=== PATIENT | male | born 1965 ===

== ENCOUNTER 2021-03-02 23:12 | Emergency (ER) | payer SELFPAY ==
[2021-03-02] MEDS ORDERED: Lisinopril 10 MG Tab PO ONE (23:27)
--- NOTE | 2021-03-02 23:30 | EDM.PDOC ---
ED [facility] GENERAL MEDICAL PROBLEM - General Chief Complaint: General Stated Complaint: MEDICAL CLEARANCE Time Seen by Provider: 03/02/21 23:13 Source of Information: Reports: Patient - History of Present Illness INITIAL COMMENTS - FREE TEXT/NARRATIVE: Patient presents for medical clearance. Patient has a history of high blood pressure. Patient has no complaints at this time. No chest pain or shortness of breath or headache. No recent fevers chills cough vomiting diarrhea or other complaints. he does not know the name of the medication that he takes for his high blood pressure - Related Data Allergies Allergy/AdvReac Type Severity Reaction Status Date / Time No Known Allergies Allergy Verified 03/02/21 23:25 Home Meds: Home Meds . [Unable to Verify Home Med List] 03/02/21 [History] Social & Family History - Recreational Drug Use Recreational Drug Use: No ED ROS GENERAL - Review of Systems Review Of Systems: Comprehensive ROS is negative, except as noted in HPI. ED EXAM, GENERAL - Physical Exam Exam: See Below Free Text/Narrative:: CONSTITUTIONAL: well appearing in no acute distress SKIN: dry, and intact without rash HENT: Normocephalic, atraumatic, NECK: normal range of motion PULMONARY: normal chest rise and fall, no respiratory distress or stridor NEUROLOGIC: normal speech, moves all extremities, grossly non-focal MUSCULOSKELETAL: no gross deformities, atraumatic PSYCHIATRIC: normal mood and affect Course - Vital Signs Text/Narrative:: Patient presents for medical clearance. Patient's blood pressure is a little bit elevated but this would be expected as he is headed to longterm. It is not dangerously high and the patient is not symptomatic. I will give him a dose of lisinopril and then he can be medically cleared. He can restart his medications tomorrow either when he is released or can be started by [facility] (patient's own medication or medical staff) Last Recorded V/S: Last Vital Signs Temp 36.4 C 03/02/21 23:20 Pulse 88 03/02/21 23:20 Resp 14 03/02/21 23:20 BP 153/104 H 03/02/21 23:20 Pulse Ox 95 03/02/21 23:20 - Orders/Labs/Meds Orders: Active Orders 24 hr Category Date Time Status lisinopriL [Prinivil] Med 03/02/21 23:27 Once 10 mg PO ONETIME ONE Departure - Departure Time of Disposition: 23:29 Disposition: Home, Self-Care 01 Condition: Good Clinical Impression: Hypertension - Discharge Information Instructions: Hypertension, Adult, [id number] Referrals: PCP,None [Primary Care Provider] - Additional Instructions: Return for chest pain, headache, change or worsening condition. Take your blood pressure medication as normal starting tomorrow. The following information is given to patients seen in the emergency department who are being discharged to home. This information is to outline your options for follow-up care. We provide all patients seen in our emergency department with a follow-up referral. The need for follow-up, as well as the timing and circumstances, are variable depending upon the specifics of your emergency department visit. If you don't have a primary care physician on staff, we will provide you with a referral. We always advise you to contact your personal physician following an emergency department visit to inform them of the circumstance of the visit and for follow-up with them and/or the need for any referrals to a consulting specialist. The emergency department will also refer you to a specialist when appropriate. This referral assures that you have the opportunity for follow-up care with a specialist. All of these measure are taken in an effort to provide you with optimal care, which includes your follow-up. Primary care clinics in the area: [facility] - Primary [facility] [address] [place] [address] [facility] [address] [place] [id number] Under all circumstances we always encourage you to contact your private physician who remains a resource for coordinating your care. When calling for follow-up care, please make the office aware that this follow-up is from your recent emergency room visit. If for any reason you are refused follow-up, please contact the [facility] Emergency Department at and asked to speak to the emergency department charge nurse. Sepsis Event Note (ED) - Evaluation Sepsis Screening Result: No Definite Risk - Focused Exam Vital Signs: Vital Signs Temp Pulse Resp BP Pulse Ox 03/02/21 23:20 36.4 C 88 14 153/104 H 95 - My Orders Last 24 Hours: My Active Orders 03/02/21 23:27 lisinopriL [Prinivil] 10 mg PO ONETIME ONE - Assessment/Plan Last 24 Hours: My Active Orders 03/02/21 23:27 lisinopriL [Prinivil] 10 mg PO ONETIME ONE
[2021-03-02] MEDS ORDERED: Hydrochlorothiazide 25 MG Tab PO ONE (23:41)
== END 2021-03-02 23:48 ==
LOC: MW.ED 23:12
DX: I10 Essential (primary) hypertension (principal)
CPT/HCPCS: 99283; A9270